=== PATIENT | female | born 1940 | race Hispanic/Latino ===

== ENCOUNTER 2020-06-30 07:55 | Day surgery (SDC) | payer OTHER ==
[~2020-06-30] VITALS: Ht 157.5 cm; Wt 56.7 kg
[~2020-06-30 07:55] MED LIST: AMLO-257 PO; CALC667C10 PO; DIPH1TAB24 PO; ESOM40CA54 PO; GABA-529 PO; LOSA50TA64 PO; MAGN400T51 PO; POTA-79 PO; ROSU40TA21 PO; [UNRECOGNIZED DRUG - OTHER] PO
[2020-06-30] MEDS ORDERED: SODIUM CHLORIDE 0.9% 1000ML 1,000 ML IV ONE (08:12)
[2020-06-30 08:15] VITALS: BP 135/68
[2020-06-30 08:54] LABS: POTASSIUM 2.6 mmol/L (3.5-5.1)
[2020-06-30 09:19] LABS: CREATININE 10.6 mg/dL (0.5-1.5)
== END 2020-06-30 10:30 | disposition home or self-care (01) ==
LOC: ENDO 07:55 → DAH 07:55 → ENDO 10:30
PROVIDERS: ATTEND Internal Medicine Gastroenterology
DX: D50.9 Iron deficiency anemia, unspecified (principal); R13.10 Dysphagia, unspecified; Z20.822 Contact with and (suspected) exposure to COVID-19; K22.70 Barrett's esophagus without dysplasia; R19.4 Change in bowel habit; K21.9 Gastro-esophageal reflux disease without esophagitis; N18.6 End stage renal disease; I12.0 Hypertensive chronic kidney disease with stage 5 chronic kidney disease or end stage renal disease; Z90.710 Acquired absence of both cervix and uterus; Z90.49 Acquired absence of other specified parts of digestive tract; Z98.890 Other specified postprocedural states; Z80.0 Family history of malignant neoplasm of digestive organs; Z53.8 Procedure and treatment not carried out for other reasons; Z79.899 Other long term (current) drug therapy
CPT/HCPCS: 36415; 80048; 93005; C9803; J7030; U0003

== ENCOUNTER 2020-07-09 05:32 | Day surgery (SDC) | payer OTHER ==
[~2020-07-09] VITALS: Ht 160 cm; Wt 55.8 kg
[2020-07-09] MEDS ORDERED: SODIUM CHLORIDE 0.9% 1000ML 1,000 ML IV ONE (06:21)
[2020-07-09 06:50] VITALS: BP 136/70
[2020-07-09 06:57] LABS: POTASSIUM 3.3 mmol/L (3.5-5.1)
[2020-07-09 07:00] LABS: CREATININE 9.7 mg/dL (0.5-1.5)
[2020-07-09] MEDS ORDERED: SIMETHICONE 40 MG/0.6 ML ML ONE (07:07)
[2020-07-09] MEDS ORDERED: PROPOFOL 10 MG/ML 20ML VIAL IV ONE (07:17)
[2020-07-09] MEDS ORDERED: EPINEPHRINE 1 MG/ML AMPULE ONE (07:17)
[2020-07-09] MEDS ORDERED: LIDOCAINE HCL 2% 20ML ONE (07:17)
[2020-07-09 07:35] VITALS: BP 128/69
[2020-07-09 07:40] VITALS: BP 116/67
[2020-07-09 07:45] VITALS: BP 126/66
[2020-07-09 07:50] VITALS: BP 131/66
== END 2020-07-09 08:00 ==
LOC: ENDO 05:32 → DAH 05:32 → ENDO 08:00
PROVIDERS: ATTEND Internal Medicine Gastroenterology
DX: R13.10 Dysphagia, unspecified (principal); D50.9 Iron deficiency anemia, unspecified; K29.50 Unspecified chronic gastritis without bleeding; K22.70 Barrett's esophagus without dysplasia; K21.9 Gastro-esophageal reflux disease without esophagitis; I12.0 Hypertensive chronic kidney disease with stage 5 chronic kidney disease or end stage renal disease; D63.1 Anemia in chronic kidney disease; N18.6 End stage renal disease; Z99.2 Dependence on renal dialysis; E78.5 Hyperlipidemia, unspecified; Z79.899 Other long term (current) drug therapy; Z20.822 Contact with and (suspected) exposure to COVID-19
CPT/HCPCS: 36415; 43239; 80048; A4215 ×2; A4221; A4222; A4223; A4606; A4620; A4663; C9803; J0171; J2704; J3490; J7030; U0003

== ENCOUNTER → 2020-07-10 | Outpatient (CLI) | payer OTHER ==
[~2020-07-10] MED LIST changes: -AMLO-257 PO
== END | disposition home or self-care (01) ==
LOC: RAH 07:31
PROVIDERS: ATTEND Internal Medicine Gastroenterology
DX: N28.1 Cyst of kidney, acquired (principal); N26.1 Atrophy of kidney (terminal); Z90.49 Acquired absence of other specified parts of digestive tract
CPT/HCPCS: 76700